=== PATIENT | female | born 1975 | race Caucasian/White ===

== ENCOUNTER 2022-07-24 09:56 | Day surgery (SDC) | payer BC ==
[2022-07-24] MEDS ORDERED: Ondansetron 4 MG/2 ML SDV IV ONE (09:57)
[2022-07-24] MEDS ORDERED: Sodium Chloride 0.9% 10 ML Syringe FLUSH PRN (10:00)
[2022-07-24] MEDS ORDERED: Lactated Ringers 1,000 ML IV SCH (10:00)
[2022-07-24] MEDS ORDERED: Midazolam 1 MG/ML 2 ML SDV ONE (11:21)
[2022-07-24] MEDS ORDERED: Propofol 200 MG/20 ML SDV ONE (11:21)
== END 2022-07-24 13:35 | disposition home or self-care (01) ==
LOC: KA.SDS 09:56
PROVIDERS: ATTEND Family Medicine
DX: K92.1 Melena (principal); R19.7 Diarrhea, unspecified; N89.8 Other specified noninflammatory disorders of vagina; B37.31 Acute candidiasis of vulva and vagina; Z79.899 Other long term (current) drug therapy; Z88.8 Allergy status to other drugs, medicaments and biological substances
CPT/HCPCS: J2250; J2405; J2704; J7120

== ENCOUNTER 2022-08-07 09:22 | Day surgery (SDC) | payer BC ==
[2022-08-07] MEDS ORDERED: Ondansetron 4 MG/2 ML SDV IV ONE (09:23)
[2022-08-07] MEDS ORDERED: Lactated Ringers 1,000 ML IV SCH (09:30)
[2022-08-07] MEDS ORDERED: Sodium Chloride 0.9% 10 ML Syringe FLUSH PRN (09:30)
[2022-08-07] MEDS ORDERED: Propofol 200 MG/20 ML SDV ONE (10:11)
[2022-08-07] MEDS ORDERED: Midazolam 1 MG/ML 2 ML SDV ONE (10:11)
== END 2022-08-07 12:17 | disposition home or self-care (01) ==
LOC: KA.SDS 09:22
PROVIDERS: ATTEND Family Medicine
DX: K62.89 Other specified diseases of anus and rectum (principal); K64.8 Other hemorrhoids; F31.76 Bipolar disorder, in full remission, most recent episode depressed; Z79.899 Other long term (current) drug therapy; Z88.8 Allergy status to other drugs, medicaments and biological substances
CPT/HCPCS: 00811; J2250; J2405; J2704; J7120